=== PATIENT | male | born 1975 | race Caucasian/White ===

== ENCOUNTER 2019-06-08 13:06 | Emergency (ER) | payer OTHER, SELFPAY ==
[2019-06-08 13:11] VITALS: BP 121/85; PULSE 74; RESP 18; TEMP 37.1; O2SAT 99
[2019-06-08] MEDS: Ibuprofen 600 MG TAB PO (13:18)
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
--- NOTE | 2019-06-08 13:30 | DI.RAD_ITS ---
SYMPTOMS/DIAGNOSIS: PAIN S/P FALL RIGHT SHOULDER: There are no prior comparison exams. There is widening of the AC joint. The coracoclavicular distance appears normal. No fracture or glenohumeral joint dislocation is seen. IMPRESSION: AC separation.
== END 2019-06-08 13:53 | disposition home or self-care (01) ==
PROVIDERS: Emergency Provider Emergency Medicine
DX: S40.211A Abrasion of right shoulder, initial encounter (principal); S43.101A Unspecified dislocation of right acromioclavicular joint, initial encounter; V18.0XXA Pedal cycle driver injured in noncollision transport accident in nontraffic accident, initial encounter; Y93.55 Activity, bike riding
CPT/HCPCS: 23540; 73030; L3650